=== PATIENT | female | born 1990 | race Asian ===

== ENCOUNTER 2023-03-14 14:55 | Inpatient (IN) | payer BC ==
[2023-03-14] VITALS (10 sets, daily range): BP systolic 116–142; BP diastolic 63–87; PULSE 61–97; TEMP 99
[~2023-03-14] VITALS: Ht 152.4 cm; Wt 66.8 kg
--- NOTE | 2023-03-14 15:17 | NUR ---
PT AMBULATORY TO UNIT WITH REPORTS OF "WAVES OF PAIN" AND BRIGHT RED VAGINAL BLEEDING. PT VOIDED ON ARRIVAL WITH DIME SIZE CLOTS NOTED IN TOILET. THIS RN PALPATED ABDOMEN, NOTED TO RELAX IN BETWEEN CTX. PT HAS NO HX OF PREVIA. CALLED DR. ANDERSON TO GET "OK" TO PERFORM SVE. DR. ANDERSON OKS. SVE /-2. PT TOLERATED WELL. REPORTS SOME MOVEMENT. NO LOF. WRITTEN PLAN PROVIDED.
[2023-03-14] MEDS ORDERED: PRENATAL TABLET PO (15:44)
--- NOTE | 2023-03-14 16:30 | NUR ---
[address] ANDERSON ON UNIT. JOSE AL/90/-1. PT TOLERATED WELL.
--- NOTE | 2023-03-14 16:54 | NUR ---
[id number] PT OFF MONITOR, MOVING AROUND, IN BATHROOM, STANDING BY SIDE OF BED.
[2023-03-14 18:30] LABS: BASO # 0.1 K/mm3 (0.0-0.2); BASO % 0.4 % (0.0-2.0); EOS % 0.1 % (0.0-4.0); GRAN # 14.8 K/mm3 (1.4-6.5); GRAN % 89.6 % (42.2-75.2); HEMATOCRIT 43.5 % (37.0-47.0); HEMOGLOBIN 15.1 g/dl (12.5-16.0); LYMPH % 6.3 % (20.0-51.0); MEAN CELL VOLUME 91 fl (80.0-100.0); MEAN CORPUSCULAR HEMOGLOBIN 32 pg (27-31); MEAN CORPUSCULAR HGB CONC 35 g/dl (33.0-37.0); MEAN PLATELET VOLUME 10.4 fl (7.4-10.4); MONO # 0.5 K/mm3 (0.1-0.6); MONO % 2.9 % (1.7-9.3); PLATELET COUNT 241 K/mm3 (130-400); RED BLOOD COUNT 4.77 M/mm3 (4.10-5.30); REDCELL DISTRIBUTION WIDTH-CV 13.1 % (11.5-14.5)
--- NOTE | 2023-03-14 19:55 | NUR ---
1814- THIS NURSE IN ROOM FOR BEDSIDE REPORT. PT STANDING IN BED AND USING THE SQUAT BAR TO PUSH DURING CTX. IV STARTED BY THIS NURSE, SEE IV INTERVENTION, LABWORK COLLECTED AND SENT TO LAB. 183- CONCERNS OF DECELS INTO THE 90'S WITH PUSHING, US ADJUSTED AND FHTs FOUND IN THE 130'S. THIS NURSE ATTEMPTS TO HOLD US IN PLACE DURING PUSHING EFFORTS BUT US CONTINUES TO INTERMITTENTLY TRACE MATERNAL HR IN THE 90'S. PT CONTINUES PUSHING EFFORTS IN HANDS AND KNEES. 1854-PT TURNED TO RIGHT LATERAL TO BEGIN SIDE LYING PUSHING. INTERMITTENT VARIABLES NOTED WITH PUSHING EFFORTS. 1904- PT TURNED TO LEFT LATERAL TO CONTINUE SIDE LYING PUSHING, CONTINUED INTERMITTENT VARIABLES WITH PUSHING EFFORTS 1914- PT TURNED TO SEMIFOWLERS, CONTINUES PUSHING EFFORTS. 1916- DR. DUMONT CALLED FOR DELIVERY, SEE PHYSICIAN NOTIFICATION. 1930- DR. DUMONT IN ROOM FOR DELIVERY. 1932- SPONTANEOUS DELIVERY OF VIABLE BABY BOY THROUGH A TRIPLE NUCHAL CORD. BABY TO MOTHER'S CHEST, BABY DRIED AND STIMULATED, SPONTANEOUS CRY NOTED. BABY CARES ASSUMED BY Mary SAVAGE RN 1938- SPONTANEOUS DELIVERY OF INTACT PLACENTA. PITOCIN STARTED AT 333ML/HR PER PROTOCOL. 1942- DR. DUMONT BEGINS REPAIR OF 2ND PERINEAL LACERATION AND BILATERAL VAGINAL WALL LACERATIONS. 1946- BLADDER EMPTIED WITH RED AHMET, 75MLS URINE OUT. 1954- RECOVERY STARTED.
--- NOTE | 2023-03-14 22:00 | NUR ---
PT UP TO BATHROOM WITH RN STAND BY ASSIST. PT CURRENTLY DECLINING ANY PAIN MEDICATION. PERICARE EDUCATION PROVIDED BY RN. PT VERBALIZED UNDERSTANDING. PT UNABLE TO VOID AT THIS TIME. PT CHANGED INTO CLEAN GOWN, MESH UNDIES, AND NEW PERIPAD. PT AMBULATED AROUND LABOR ROOM AND THEN TO PP ROOM 207. PT DENIES ANY FEELINGS OF LIGHTHEADEDNESS. PP ROOM ORIENTATION BY RN. PT VERBALIZED UNDERSTANDING. PT EDUCATED THAT RN WILL NEED TO MEASURE VOIDS: URINE HAT PLACED INTO TOILET. PT VERBALIZED UNDERSTANDING.
[2023-03-15 03:15] VITALS: BP 104/60; PULSE 72; TEMP 98.5
[2023-03-15 06:58] VITALS: BP 110/71; PULSE 67; TEMP 98
--- NOTE | 2023-03-15 09:46 | NUR ---
Initial visit; Parents resting, Requirements Manager was able to catch them awake and offer congratulations and God's blessings for the of their son. Requirements Manager also thanked family for choosing [facility].
[2023-03-15 17:00] VITALS: BP 110/58; PULSE 77; TEMP 98
[2023-03-15 20:05] VITALS: BP 108/75; PULSE 76; TEMP 98.2
[2023-03-16 08:30] VITALS: BP 111/54; PULSE 67; TEMP 98
[2023-03-16] MEDS ORDERED: MOTRIN 800800 MG/TAB PO (08:45)
== END 2023-03-16 14:30 | disposition home or self-care (01) | DRG 807 ==
LOC: LDRO 14:55 → LDR 15:32 → OB 15:32
PROVIDERS: ADMIT Obstetrics & Gynecology
PROC: 10E0XZZ Delivery of Products of Conception, External Approach (ICD-10-PCS; principal; 2023-03-14)
PROC: 0KQM0ZZ Repair Perineum Muscle, Open Approach (ICD-10-PCS; 2023-03-14)
DX: O35.8XX0 Maternal care for other (suspected) fetal abnormality and damage, not applicable or unspecified (principal); Z37.0 Single live birth; Z3A.38 38 weeks gestation of pregnancy; Z23 Encounter for immunization; O70.1 Second degree perineal laceration during delivery; O69.81X0 Labor and delivery complicated by cord around neck, without compression, not applicable or unspecified
CPT/HCPCS: J2590